=== PATIENT | female | born 1995 ===

== ENCOUNTER 2018-06-29 13:29 | Emergency (ER) | payer SELFPAY ==
[2018-06-29 13:49] VITALS: RESP 18
--- NOTE | 2018-06-29 14:23 | C.PDOC ---
History Of Present Illness 23-year-old female, presents to the emergency department with complaints of an itchy rash to bilateral arms and stomach x3 days. Patient states she was working in the yard before onset, she is using alcohol pads on the rash with no relief. She notes it began spreading, prompting visit. Patient denies any fever, nausea/vomiting, known allergens or any other associated symptoms. No other complaints at this time. Time Seen by Provider: 06/29/18 13:50 Chief Complaint (Nursing): Allergic Reaction History Per: Patient, Family History/Exam Limitations: no limitations Onset/Duration Of Symptoms: Days Current Symptoms Are (Timing): Still Present Past Medical History Reviewed: Historical Data, Nursing Documentation, Vital Signs Vital Signs: Last Vital Signs Temp 99 F 06/29/18 13:46 Pulse 69 06/29/18 13:46 Resp 18 06/29/18 13:46 BP 110/67 06/29/18 13:46 Pulse Ox 98 06/29/18 13:46 Family History: States: No Known Family Hx - Social History Hx Alcohol Use: No Hx Substance Use: No - Immunization History Hx Tetanus Toxoid Vaccination: No Hx Influenza Vaccination: No Hx Pneumococcal Vaccination: No Review Of Systems Constitutional: Negative for: Fever Respiratory: Negative for: Shortness of Breath Gastrointestinal: Negative for: Nausea, Vomiting Skin: Positive for: Rash Physical Exam - Physical Exam Appears: Non-toxic, No Acute Distress Skin: Warm, Dry, Rash (multiple excoriations and vesicles in linear streaks to bilateral forearms. Right forearm +weeping wound. ) Head: Atraumatic, Normacephalic Eye(s): bilateral: Normal Inspection Nose: Normal Oral Mucosa: Moist Lips: Normal Appearing Neck: Normal ROM Chest: Symmetrical Cardiovascular: Rhythm Regular, No Murmur Respiratory: Normal Breath Sounds, No Accessory Muscle Use Gastrointestinal/Abdominal: Soft, No Tenderness Extremity: Normal ROM, No Deformity Neurological/Psych: Oriented x3, Normal Speech ED Course And Treatment O2 Sat by Pulse Oximetry: 98 Medical Decision Making Medical Decision Making: Plan: * Benadryl, Prednisone Patient instructed on care of rash to keep covered and dry, not to apply alcohol pads. Can take Benadryl for itching and prenisone Disposition Counseled Patient/Family Regarding: Diagnosis, Need For Followup, Rx Given - Disposition Referrals: [facility] [place] [Outside] [facility] [Outside] Disposition: HOME/ ROUTINE Disposition Time: 14:23 Condition: STABLE Additional Instructions: Keep area clean and dry. Do not apply Alcohol Take prednisone 40 mg daily for 5 days Take Benadryl 1-2 pills every 4-6 hours for itching Can apply cortisone cream to area Mantenga el dylon limpia y seca. No aplicar alcohol [place] prednisona 40 mg al da jenaro [address]. [place] Benadryl 1-2 pastillas cada 4-6 horas para la picazn Se puede aplicar crema de cortisona al dylon. Prescriptions: DiphenhydrAMINE [Benadryl] 25 mg PO Q4 PRN #30 cap PRN Reason: Rash predniSONE [predniSONE Tab] 40 mg PO DAILY #10 tab Instructions: Contact Dermatitis (DC) Forms: [employer] (Occitan) Print Language: INDONESIAN - POA Present On Arrival: None - Clinical Impression Clinical Impression: Contact dermatitis due to plant - Scribe Statement The provider has reviewed the documentation as recorded by the Scribe (Tonio Cunningham) All medical record entries made by the Scribe were at my direction and personally dictated by me. I have reviewed the chart and agree that the record accurately reflects my personal performance of the history, physical exam, medical decision making, and the department course for this patient. I have also personally directed, reviewed, and agree with the discharge instructions and disposition.
[2018-06-29 14:52] VITALS: BP 100/62; PULSE 72; TEMP 98.2
[2018-06-29 17:58] VITALS: O2SAT 98
== END 2018-06-29 14:52 | disposition home or self-care (01) ==
LOC: C.ER 13:29
DX: L25.5 Unspecified contact dermatitis due to plants, except food (principal)

== ENCOUNTER 2018-09-22 16:09 | Emergency (ER) | payer SELFPAY ==
[2018-09-22 16:16] VITALS: O2SAT 100
[2018-09-22 17:03] LABS: SQUAMOUS EPITHIAL < 1 /hpf (0-5); URINE BACTERIA RARE (<OCC); URINE BILIRUBIN NEGATIVE (NEGATIVE); URINE BLOOD NEGATIVE (NEGATIVE); URINE CLARITY Clear (Clear); URINE COLOR Yellow (YELLOW); URINE GLUCOSE (UA) NORMAL (Normal); URINE LEUKOCYTE ESTERASE NEG Leu/uL (Negative); URINE PROTEIN NEGATIVE (NEGATIVE); URINE UROBILINOGEN NORMAL mg/dL (0.2-1.0)
[2018-09-22 17:04] LABS: HCG,QUALITATIVE URINE NEGATIVE (NEGATIVE)
[2018-09-22 17:20] LABS: BASO # 0.1 K/uL (0.0-0.2); BASO % 0.7 % (0.0-2.0); EOS # 0.1 K/uL (0.0-0.7); EOS % 1.4 % (0.0-4.0); HEMOGLOBIN 14.3 g/dL (11.0-16.0); LYMPH # 2.4 K/uL (1.0-4.3); LYMPH % 25.9 % (20.0-40.0); MEAN CELL VOLUME 89.3 fL (81.0-99.0); MEAN CORPUSCULAR HEMOGLOBIN 29.9 pg (27.0-31.0); MEAN CORPUSCULAR HGB CONC 33.5 g/dL (33.0-37.0); MONO # 0.8 K/uL (0.0-0.8); MONO % 8.8 % (0.0-10.0); NEUT # 5.9 K/uL (1.8-7.0); NEUT % 63.2 % (50.0-75.0); RBC 4.79 Mil/uL (3.80-5.20); RED CELL DISTRIBUTION WIDTH 13.1 % (11.5-14.5); WHITE BLOOD COUNT 9.4 K/uL (4.8-10.8)
[2018-09-22 17:33] LABS: ALB/GLOB RATIO 1.5 (1.0-2.1); ALBUMIN 4.8 g/dL (3.5-5.0); ALT/SGPT 32 U/L (9-52); AST/SGOT 29 U/L (14-36); BLOOD UREA NITROGEN 13 mg/dL (7-17); CALCIUM 9.6 mg/dl (8.6-10.4); GFR NON-AFRICAN AMERICAN > 60; LIPASE 118 U/L (23-300)
--- NOTE | 2018-09-22 17:36 | C.PDOC ---
History Of Present Illness 23 y/o female presents to the ER complaining of LLQ abdominal pain which has been present for the past 2 months. Patient states that the pain has been constant.Patient reports that her LMP was on 08/17/18. She notes that she went to the [facility]. At the time, she had UA which was negative for UTI. She has another follow-up appointment in the clinic on 10/12/18. Denies having nausea, vomiting, dysuria, hematuria, vaginal bleeding, vaginal discharge and hx of . Time Seen by Provider: 09/22/18 16:33 Chief Complaint (Nursing): Abdominal Pain History Per: Patient History/Exam Limitations: no limitations Onset/Duration Of Symptoms: Days Current Symptoms Are (Timing): Still Present Severity: Moderate Location Of Pain/Discomfort: LLQ Associated Symptoms: denies: Nausea, Vomiting, Urinary Symptoms Past Medical History Reviewed: Historical Data, Nursing Documentation, Vital Signs Vital Signs: Last Vital Signs Temp 98.6 F 09/22/18 16:14 Pulse 80 09/22/18 16:14 Resp 20 09/22/18 16:14 BP 120/80 09/22/18 16:14 Pulse Ox 100 09/22/18 16:14 - Medical History PMH: No Chronic Diseases Surgical History: No Surg Hx Family History: States: No Known Family Hx - Social History Hx Alcohol Use: No Hx Substance Use: No - Immunization History Hx Tetanus Toxoid Vaccination: No Hx Influenza Vaccination: No Hx Pneumococcal Vaccination: No Review Of Systems Constitutional: Negative for: Fever, Chills Gastrointestinal: Positive for: Abdominal Pain (LLQ). Negative for: Nausea, Vomiting, Diarrhea Genitourinary: Negative for: Dysuria, Hematuria, Vaginal Discharge, Vaginal Bleeding Physical Exam - Physical Exam Appears: Non-toxic, No Acute Distress Skin: Normal Color, Warm, Dry Head: Atraumatic, Normacephalic Eye(s): bilateral: Normal Inspection Nose: Normal Oral Mucosa: Moist Neck: Supple Chest: Symmetrical Cardiovascular: Rhythm Regular Respiratory: Normal Breath Sounds, No Rales, No Rhonchi, No Wheezing Gastrointestinal/Abdominal: Soft, Tenderness (LLQ tenderness), No Guarding, No Rebound Neurological/Psych: Oriented x3, Normal Speech ED Course And Treatment - Laboratory Results Result Diagrams: 09/22/18 17:12 09/22/18 17:12 Lab Interpretation: Normal O2 Sat by Pulse Oximetry: 100 (RA) Pulse Ox Interpretation: Normal - CT Scan/US Pelvic ultrasound Other Rad Studies (CT/US): Read By Radiologist, Radiology Report Reviewed CT/US Interpretation: Accession No. : [id number]. Patient Name / ID : DULCE COCHRAN / [id number]. Exam Date : 09/22/2018 17:45:52 ( Approved ). Study Comment : Sex / Age : F / 23Y. Creator : Audrey Young MD. Dictator : Adurey Young MD. Adobe Flex Developer : Hand Sprayer : Audrey Young MD. Approver2 : Report Date : 09/22/2018 18:14:28. My Comment : . Date of service: 09/22/2018. HISTORY: abd pain. COMPARISON: None available. TECHNIQUE: Real-time transabdominal pelvic ultrasound was performed. In addition a transvaginal pelvic ultrasound was necessary to better depict pelvic anatomy. FINDINGS: UTERUS: Measures 8.4 x 4.5 x 5.2 cm. Retroverted. ENDOMETRIUM: Measures 1.7 cm in diameter. CERVIX: Cervix length measures approximately 2.7 cm. RIGHT OVARY: Measures 3.2 x 3.0 x 3.6 cm. Blood flow is demonstrated. LEFT OVARY: Measures 4.7 x 2.8 x 3.8 cm. Blood flow is demonstrated. 2.4 x 1.2 x 2.1 cm septated cyst. FREE FLUID: No significant free fluid noted. OTHER FINDINGS: None. IMPRESSION: 2.4 cm left ovarian septated cyst. Medical Decision Making Medical Decision Making: Plan: --Labs --UA --HCG, Qual. --US-Pelvis Disposition Counseled Patient/Family Regarding: Studies Performed, Diagnosis, Need For Followup, Rx Given - Disposition Referrals: [facility] [Outside] Disposition: HOME/ ROUTINE Disposition Time: 18:22 Condition: IMPROVED Prescriptions: Naproxen [Naprosyn] 1 tab PO BID PRN #25 tab PRN Reason: Pain Instructions: Ovarian Cyst (DC) Forms: [employer] (Ugandan) Print Language: UZBEK - Clinical Impression Clinical Impression: Left ovarian cyst - Scribe Statement The provider has reviewed the documentation as recorded by the [place] Provider Attestation: All medical record entries made by the Phaniibe were at my direction and per sonally dictated by me. I have reviewed the chart and agree that the record accurately reflects my personal performance of the history, physical exam, medical decision making, and the department course for this patient. I have also personally directed, reviewed, and agree with the discharge instructions and disposition.
[2018-09-22 18:15] VITALS: BP 112/73; PULSE 73; RESP 17; TEMP 99
--- NOTE | 2018-09-22 18:18 | US ---
Date of service: 09/22/2018 HISTORY: abd pain COMPARISON: None available. TECHNIQUE: Real-time transabdominal pelvic ultrasound was performed. In addition a transvaginal pelvic ultrasound was necessary to better depict pelvic anatomy. FINDINGS: UTERUS: Measures 8.4 x 4.5 x 5.2 cm. Retroverted. ENDOMETRIUM: Measures 1.7 cm in diameter. CERVIX: Cervix length measures approximately 2.7 cm. RIGHT OVARY: Measures 3.2 x 3.0 x 3.6 cm. Blood flow is demonstrated. LEFT OVARY: Measures 4.7 x 2.8 x 3.8 cm. Blood flow is demonstrated. 2.4 x 1.2 x 2.1 cm septated cyst. FREE FLUID: No significant free fluid noted. OTHER FINDINGS: None. IMPRESSION: 2.4 cm left ovarian septated cyst.
== END 2018-09-22 19:08 | disposition home or self-care (01) ==
LOC: C.ER 16:09
DX: N83.202 Unspecified ovarian cyst, left side (principal)